=== PATIENT | female | born 1975 | race Caucasian/White ===

== ENCOUNTER 2020-05-04 21:49 | Emergency (ER) | payer OTHER ==
[~2020-05-04] VITALS: Ht 157.5 cm; Wt 61.2 kg
[2020-05-04] MEDS ORDERED: ZOLOFT50 M1 PO (22:01)
[2020-05-04] MEDS ORDERED: SYNTHROID75 MCG PO (22:01)
[2020-05-04] MEDS ORDERED: KEFLEX500 M1 PO (22:36)
[2020-05-04] MEDS ORDERED: VALACYCLOVIR1000 MG PO (22:36)
[2020-05-04] MEDS ORDERED: HYDROCODON-ACE1 EAC8 PO ×2 (22:37→22:42)
[2020-05-04 23:45] VITALS: BP 122/83
[2020-05-08 12:08] LABS: HSV 1 DNA Positive (Negative); HSV 2 DNA Negative (Negative)
== END 2020-05-04 23:47 | disposition home or self-care (01) ==
LOC: M.ERS 21:49
PROVIDERS: Emergency Medicine
DX: H00.031 Abscess of right upper eyelid (principal); Z88.0 Allergy status to penicillin; Z88.1 Allergy status to other antibiotic agents; Z88.2 Allergy status to sulfonamides